=== PATIENT | female | born 2000 | race African-American/Black ===

== ENCOUNTER 2020-10-21 01:55 | Emergency (ER) | payer OTHER ==
[~2020-10-21] VITALS: Ht 167.6 cm; Wt 129.3 kg
[~2020-10-21 01:55] MED LIST: IBUPROFEN 600600 M1 PO; TYLENOL EXTRA500 MG PO
[2020-10-21] MEDS ORDERED: ALBUTEROL2.5 MG/0.1 INH (02:53)
[2020-10-21] MEDS ORDERED: DOXYCYCLINE 10100 MG PO (02:53)
[2020-10-21] MEDS ORDERED: PREDNISONE 10 M10 MG PO (02:53)
[2020-10-21 03:22] VITALS: BP 119/72
== END 2020-10-21 03:23 | disposition home or self-care (01) ==
LOC: ER 01:55
DX: R05 Cough (principal); R06.02 Shortness of breath; J02.9 Acute pharyngitis, unspecified